=== PATIENT | female | born 1955 | race American Indian/Alaskan Native ===

== ENCOUNTER 2025-01-18 10:01 | Outpatient (CLI) | payer MEDICARE, BC ==
--- NOTE | 2025-01-20 17:39 | RADIOLOGY REPORT ---
CLINICAL INDICATION: IMPINGEMENT SYNDROME OF LEFT SHOULDER COMPARISON: None TECHNIQUE: Multiplanar, multisequence MRI of the left shoulder was performed without contrast. Contrast: None FINDINGS: Glenohumeral joint: There is no fracture or bone marrow edema. Alignment is maintained. No focal a rticular cartilage defect. There is no joint effusion or synovitis. Acromioclavicular joint: The acromioclavicular joint is narrowed with capsular hypertrophy. There i s type 2 acromion. Rotator cuff and bursae: There is supraspinatus tendinosis and partial-thickness bursal surface tear. There is infraspinatus tendinosis without tear. Subscapularis tendinosis without tear. Teres minor tendon is intact. There is no regional muscle atrophy. There is fluid distention of the subacro mial subdeltoid bursa. Biceps tendon and glenoid labrum: The long head biceps tendon is located within the bicipital groove and intact. The anterior superior labrum is degenerated and likely torn. IMPRESSION: 1. Supraspinatus tendinosis and partial-thickness bursal surface tear. Infraspinatus and subscapular is tendinosis without tear. No full-thickness rotator cuff tear. 2. 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 Subacromial subdeltoid bursitis. Correlation for impingem ent syndrome recommended. 3. 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
== END 2025-01-18 23:59 | disposition home or self-care (01) ==
LOC: MRI02 10:01
PROVIDERS: ATTEND Physician Assistant Surgical
DX: M75.112 Incomplete rotator cuff tear or rupture of left shoulder, not specified as traumatic (principal); M19.012 Primary osteoarthritis, left shoulder; M75.52 Bursitis of left shoulder; M75.82 Other shoulder lesions, left shoulder; M25.812 Other specified joint disorders, left shoulder; M75.42 Impingement syndrome of left shoulder; M25.512 Pain in left shoulder
CPT/HCPCS: 73221